=== PATIENT | female | born 1975 | race Caucasian/White ===

== ENCOUNTER → 2016-06-11 | Outpatient (CLI) | payer OTHER ==
[~2016-06-11] MED LIST: AMBIEN PO; CETIRIZINE HCL10 MG PO; CIPRO PO; DITROPAN PO; DOXYCYCLINE PO; FLEXERIL10 MG PO; FLOMAX0.4 M1 PO; GUMMI BEAR1 TAB.CHEW PO; HYDROCODONE-APA1 T41 PO; IBUPROFEN800 MG PO; METOPROLOL TAR25 MG PO; PERCOCET 5-3251 TAB PO; PERCOCET5/325 PO; PHENERGAN25 M1 PO; PYRIDIUM PO; SINGULAIR PO; SUDAFED PO; TOPAMAX PO; TORADOL10 MG PO; VITAMIN D50000 UNIT PO
--- NOTE | ~2016-06-11 | EKG ---
PATIENT: MCKAY LORD UNIT #: [id number] Ventricular Rate: 84 BPM Atrial Rate: 84 BPM P-R Interval: 176 ms QRS Duration: 94 ms Q-T Interval: 386 ms QTC Calculation(Bezet): 456 ms P Crawford: 35 degrees Calculated R Crawford: 50 degrees Calculated T Crawford: 31 degrees Diagnosis Line: Normal sinus rhythm Diagnosis Line: Low voltage QRS Diagnosis Line: Poor R wave progression questionable lead position Diagnosis Line: or body habitus Abnormal ECG Diagnosis Line: When compared with ECG of 27-AUG-2009 15:00, Diagnosis Line: No significant change was found Diagnosis Line: Confirmed by KARL GUZMAN MD ([id number]) on 06/11/2016 Diagnosis Line: 4:46:31 PM INTERPRETING MD: MEGAN ARAMBULA
--- NOTE | ~2016-06-11 | CR63 ---
[facility] A Service of [facility] & [facility] RADIOLOGY TEXT RESULTS PATIENT: MCKAY LORD LOCATION: [facility] : 75 UNIT #: [id number] AGE: [address]: Glenroy Marie MD SEX: F ORDER DR: [id number] [facility] [address] [place], [place] [address] [id number] O MR#: [id number] Acc #: [id number] NAME: MCKAY LORD. : 1975 SEX: F STUDY DATE/TIME: 06/11/2016 8:13 UNIT: [facility] ROOM: STUDY DESCRIPTION: CR Chest 2 View Attending Physician: Glenroy Marie M.D. Referring Physician: Glenroy Marie M.D. Ordering Physician: Glenroy Marie M.D. Primary Care Physician: Laverne Friend MEDICAL IMAGING REPORT This report is preliminary unless electronic signature is present EXAM Chest - PA and lateral, 06/11/2016 HISTORY Morbid obesity. Preop laparoscopic gastric banding. FINDINGS PA and lateral examination of the chest upright shows a good expansion of the parenchyma with a normal distribution of the pulmonary vascularity. There is no indication of congestion, effusion, infiltrate, tumor, or nodular density. The pleural reflections and diaphragmatic contours are normal. The cardiac silhouette and mediastinal anatomy is within normal limits. IMPRESSION Normal chest. Dictated by... Mick Leija M.D. THIS IS AN ELECTRONICALLY VERIFIED REPORT Mick Leija M.D. at 06/11/2016 4:58 PM Vijaya TD: 06/11/2016 11:21 JOB #: [id number] MEDICAL IMAGING REPORT COPY
--- NOTE | ~2016-06-11 | CR97 ---
[facility] A Service [facility] RADIOLOGY TEXT RESULTS PATIENT: MCKAY LORD LOCATION: [facility] : 75 UNIT #: [id number] AGE: [address]: Glenroy Marie MD SEX: F ORDER DR: [id number] [facility] [address] [place], [place] [address] [id number] O MR#: [id number] Acc #: [id number] NAME: MCKAY LORD : 1975 SEX: F STUDY DATE/TIME: 06/11/2016 12:08 UNIT: [facility] ROOM: STUDY DESCRIPTION: CR Esophagram Attending Physician: Glenroy Marie M.D. Referring Physician: Glenroy Marie M.D. Ordering Physician: Glenroy Marie M.D. Primary Care Physician: Laverne Friend MEDICAL IMAGING REPORT This report is preliminary unless electronic signature is present EXAM Esophagram, 06/11/2016. INDICATION 41-year-old female presenting for evaluation of planned laparoscopic gastric banding procedure and possible paraesophageal hernia repair. History of partial hysterectomy. Symptoms began this morning. TECHNIQUE Spot fluoroscopic views of the esophagus were obtained in various projections after the patient ingested gas crystals and thick and thin liquid barium on 06/11/2016. COMPARISON STUDIES There are no comparisons. FINDINGS Notes indicate 0.7 minutes of fluoroscopy time was used in the case. 54 images from the procedure were saved to the PACS system. There is suboptimal gaseous distension of the esophagus for air contrast views. The esophagus demonstrates an unremarkable primary stripping wave. Mildly increased secondary and tertiary contractions are seen in the distal third esophagus. There is no focal stricture, esophageal mass, or mucosal abnormality. There is a subtle small intermittently visualized sliding hiatal hernia. Postoperative changes related to lumbar surgery noted. IMPRESSION 1. Very minimal to mild secondary and tertiary contractions in the distal third esophagus. 2. Subtle intermittently visualized sliding hiatal hernia. 3. Notes indicate 0.7 minutes of fluoroscopy time was used in the case. [facility] A Service of [facility] RADIOLOGY TEXT RESULTS PATIENT: MCKAY LORD LOCATION: [facility] #: [id number] : 75 UNIT #: [id number] AGE: [address]: Glenroy Marie MD SEX: F ORDER DR: 54 images from the procedure were saved to the DR PACS system. Dictated by... Brad Hernadez M.D. THIS IS AN ELECTRONICALLY VERIFIED REPORT Brad Hernadez M.D. at 06/11/2016 5:06 PM MEI/federica TD: 06/11/2016 16:12 JOB #: [id number] MEDICAL IMAGING REPORT COPY
[2016-06-11 09:08] LABS: HEMATOCRIT 39.8 % (35.0-45.0); HEMOGLOBIN 13.3 gm/dL (12.0-16.0); MEAN CELL VOLUME 84.9 FL (83-96); MEAN CORPUSCULAR HEMOGLOBIN 28.3 PG (28-34); MEAN CORPUSCULAR HGB CONC 33.3 g/dL (30-36); MEAN PLATELET VOLUME 7.1 FL (6.5-11.5); RED BLOOD COUNT 4.68 X10e (3.90-5.30); RED CELL DISTRIBUTION WIDTH 13.2 % (11.0-15.5); WHITE BLOOD COUNT 7.1 X10e3 (4.0-10.5)
[2016-06-11 10:58] LABS: ALBUMIN SERUM 4.2 g/dL (3.5-5.0); ALKALINE PHOSPHATASE 55 U/L (32-92); ALT (SGPT) 17 U/L (10-40); AST (SGOT) 21 U/L (10-42); BILIRUBIN,TOTAL 0.6 mg/dL (0.2-2.0); BLOOD UREA NITROGEN 14 mg/dL (9-23); CALCIUM SERUM 9.3 mg/dL (8.4-10.2); CARBON DIOXIDE 29 mmol/L (22-31); CHLORIDE 101 mmol/L (100-111); CREATININE SERUM 0.7 mg/dL (0.6-1.4); GLOM FILT RATE Estimated ABOVE60 mL/min (>60); GLUCOSE FASTING 90 mg/dL (70-110); POTASSIUM 4.2 mmol/L (3.5-5.1); PROTEIN TOTAL SERUM 7.1 g/dL (6.0-8.3); SODIUM 139 mmol/L (135-145)
[2016-06-11 11:29] LABS: CHOLESTEROL 229 mg/dL (0-200); HDL CHOLESTEROL 40 mg/dL (35-95); LDL/HDL RATIO 4 RATIO (0-4); TRIGLYCERIDES 207 mg/dL (10-160)
[2016-06-11 11:33] LABS: LDL CHOLESTEROL 148 mg/dL (-130)
== END | disposition home or self-care (01) ==
LOC: CRAD 07:58
PROVIDERS: Surgery
DX: Z01.818 Encounter for other preprocedural examination (principal); K44.9 Diaphragmatic hernia without obstruction or gangrene
CPT/HCPCS: 36415; 71020; 74220; 80053; 80061; 84443; 85027; 93005

== ENCOUNTER → 2016-06-23 | Day surgery (SDC) | payer OTHER ==
--- NOTE | ~2016-06-23 | OR ---
Unit #: [id number] #: [id number] Patient: MCKAY LORD [id number] [address] [address] [id number] O MR#: [id number] NAME: MCKAY LORD ROOM: Date of Procedure: 06/23/2016 Admission Date: 06/23/2016 Surgeon: Glenroy Marie M.D. : 1975 Attending Physician: Glenroy Marie M.D. Primary Care Physician: Sai Cardona M.D. OPERATIVE REPORT PREOPERATIVE DIAGNOSIS Chronic morbid obesity with BMI of 40. POSTOPERATIVE DIAGNOSES 1. Chronic morbid obesity with BMI of 40. 2. Paraesophageal hiatal hernia. PROCEDURE PERFORMED 1. Laparoscopic adjustable gastric band. 2. Laparoscopic paraesophageal hiatal hernia repair. ASSISTANT Sabino Mace M.D. ANESTHESIA General endotracheal anesthesia. ESTIMATED BLOOD LOSS Minimal. IV FLUIDS 800 crystalloid. COMPLICATIONS None. INDICATIONS FOR PROCEDURE The patient is a 41-year-old with chronic morbid obesity. DESCRIPTION OF PROCEDURE The patient was taken to the operating room and placed in supine position. General anesthesia was induced. The abdomen was prepped and draped. A 3-cm incision was then made left of the midline. A 10-mm Visiport was then placed intraabdominal under direct vision. The abdomen was insufflated to 15 mmHg with CO2. The patient was then placed in a steep reversed Trendelenburg. General inspection of the abdomen revealed what appeared to be a paraesophageal hernia. This was identified with a defect at the diaphragm using anterior palpation with the instrument. We then made a small incision in the subxiphoid region. A Aparna liver retractor was then placed intraabdominal and used to retract the left lobe of the liver upward to further expose the paraesophageal hernia and GE junction. I then placed a 5-mm port in the right upper quadrant, a 10-mm Unit #: [id number] #: [id number] Patient: MCKAY LORD port in the left upper quadrant, and another 5-mm port in the left lower quadrant. The stomach was retracted medial and downward. Upon retracting the stomach, we took down the paraesophageal ligament, exposing the right and left lasha at the paraesophageal hernia. Any hernia sac was reduced. We then repaired the paraesophageal hernia using interrupted #0 Ethibond sutures in a [id number] type fashion. This formed a snug repair to the anterior esophagus. We then retracted the stomach medially and further exposed the angle of His using Bovie electrocautery. The stomach was then retracted laterally. We then took down the hepatogastric ligament with Bovie electrocautery. This exposed the right lasha. Using blunt dissection, I created a retrogastric tunnel from this point to the angle of His. The band was then placed intraabdominal through the 10-mm port site. This was then brought through the retrogastric tunnel in a pars flaccida technique. The band was then closed anteriorly to form a 20-mL to 25-mL anterior gastric pouch. The fundus was then secured to the anterior pouch to prevent movement around the stomach using two interrupted #0 Ethibond sutures. A third suture was then used as a gathering stitch from the lesser curve to the anterior stomach, gathering and imbricating the remaining fundus of the stomach. The tubing was then brought out through the midline 10-mm port site. All ports and the Aparna liver retractor were removed under direct vision with no evidence of abdominal hemorrhage. A polypropylene mesh was then secured to the posterior face of the laparoscopic band port. This was secured using #0 Ethibond suture. This was then cut to shape. The port was then connected to the tubing and placed into a subcutaneous pocket just anterior to the rectus sheath. Its position was then confirmed. All tubing was then placed intraabdominal. The wounds were then closed with interrupted 4-0 Vicryl. The patient tolerated the procedure well and was sent to the recovery room in good condition. Dictated by... Obi Mcnulty/alex TD: 06/24/2016 02:35 JOB #: [id number] OPERATIVE REPORT X Glenroy Marie MD X PROCEDURE OPERATIVE NOTE
--- NOTE | ~2016-06-23 | CR7 ---
[facility] A Service of [facility] & [facility] RADIOLOGY TEXT RESULTS PATIENT: MCKAY LORD LOCATION: [facility] : 75 UNIT #: [id number] AGE: [address]: Glenroy Marie MD SEX: F ORDER DR: [id number] [facility] [address] [place], [place] [address] [id number] O MR#: [id number] Acc #: [id number] NAME: MCKAY LORD : 1975 SEX: F STUDY DATE/TIME: 06/23/2016 1054 UNIT: [facility] ROOM: STUDY DESCRIPTION: CR Abdomen Single AP View Attending Physician: Glenroy Marie M.D. Ordering Physician: Glenroy Marie M.D. Primary Care Physician: Sai Cardona M.D. MEDICAL IMAGING REPORT This report is preliminary unless electronic signature is present EXAM Abdomen single view 06/23/2016 1054 hours HISTORY Morbid obesity, postop Lap-Band placement today. COMPARISON Esophagram 06/11/2016 FINDINGS Supine view of the abdomen demonstrates a Lap-Band in the left upper quadrant to the left of T10 and T11 oriented at 51 degrees from vertical. Radiopaque tubing courses inferiorly to a port overlying the left iliac wing. The bowel gas pattern is unremarkable. Patient has had fusion at the thoracolumbar junction with left-sided screws extending from T11-L3. Note is made of disruption of the vertical stabilization wire between the L2 and L3 levels. This is unchanged from 03/23/2013. IMPRESSION 1. There is a new Lap-Band to the left of T10 and T11 oriented at 51 degrees from vertical. Radiopaque tubing courses inferiorly to a port projecting over the left iliac wing. The bowel gas pattern is nonspecific. 2. There is fusion at the thoracolumbar level extending from T11-L3 with left-sided screws entering from [id number]. There is a vertical stabilization amy which is fractured between the L2 and L3 level unchanged from 03/23/2013. Dictated by... Mallory Segovia M.D. THIS IS AN ELECTRONICALLY VERIFIED REPORT Mallory Segovia M.D. at 06/23/2016 6:58 PM [facility] A Service of [facility] RADIOLOGY TEXT RESULTS PATIENT: MCKAY LORD [id number] : 75 UNIT #: [id number] AGE: [address]: Glenroy Marie MD SEX: F ORDER DR: ESAU/israel TD: 06/23/2016 15:05 JOB #: [id number] MEDICAL IMAGING REPORT COPY
== END | disposition home or self-care (01) ==
LOC: CSUR 07:20
DX: E66.01 Morbid (severe) obesity due to excess calories (principal); K44.9 Diaphragmatic hernia without obstruction or gangrene; I34.0 Nonrheumatic mitral (valve) insufficiency; F41.9 Anxiety disorder, unspecified; G47.30 Sleep apnea, unspecified; M19.90 Unspecified osteoarthritis, unspecified site; M54.9 Dorsalgia, unspecified; G89.29 Other chronic pain; Z68.41 Body mass index [BMI] 40.0-44.9, adult; Z87.442 Personal history of urinary calculi; Z87.19 Personal history of other diseases of the digestive system; Z98.51 Tubal ligation status; Z90.711 Acquired absence of uterus with remaining cervical stump; Z88.5 Allergy status to narcotic agent; Z79.891 Long term (current) use of opiate analgesic; Z79.899 Other long term (current) drug therapy; Z79.52 Long term (current) use of systemic steroids
CPT/HCPCS: 74000; C1781; J0690; J1650; J1885; J2250; J2405; J3010